=== PATIENT | male | born 1935 | race Asian ===

== ENCOUNTER 2020-11-20 08:40 | Outpatient (CLI) | payer OTHER ==
[2020-11-20] MEDS ORDERED: BARIUM SULFATE 135 ML SUSP.RECON (E-Z-HD) PO ONE (09:02)
== END 2020-11-20 20:32 | disposition home or self-care (01) ==
LOC: SRD 08:40
PROVIDERS: ATTEND Internal Medicine
DX: R13.10 Dysphagia, unspecified (principal)
CPT/HCPCS: 74220-TC

== ENCOUNTER 2021-10-30 09:42 | Outpatient (CLI) | payer OTHER | END 2021-10-30 20:40 | disposition home or self-care (01) | LOC: SMA 09:42 → EDSEX 09:42 → SMA 20:40 | PROVIDERS: ATTEND Internal Medicine | DX: Z12.31 Encounter for screening mammogram for malignant neoplasm of breast (principal); N64.89 Other specified disorders of breast | CPT/HCPCS: 77067 ==

== ENCOUNTER 2021-12-09 08:11 | Outpatient (CLI) | payer OTHER | END 2021-12-09 12:09 | disposition home or self-care (01) | LOC: SUS 08:11 | PROVIDERS: ATTEND Internal Medicine | DX: N18.9 Chronic kidney disease, unspecified (principal); N28.1 Cyst of kidney, acquired; N26.1 Atrophy of kidney (terminal) | CPT/HCPCS: 76700-TC ==

== ENCOUNTER 2022-07-04 12:06 | Outpatient (CLI) | payer OTHER | END 2022-07-04 19:30 | disposition home or self-care (01) | LOC: SLB 12:06 | PROVIDERS: ATTEND Internal Medicine | DX: S62.102A Fracture of unspecified carpal bone, left wrist, initial encounter for closed fracture (principal); M18.9 Osteoarthritis of first carpometacarpal joint, unspecified; X58.XXXA Exposure to other specified factors, initial encounter; Y93.89 Activity, other specified; Y92.89 Other specified places as the place of occurrence of the external cause; Y99.8 Other external cause status ==

== ENCOUNTER 2022-07-23 09:13 | Outpatient (CLI) | payer OTHER | END 2022-07-23 17:50 | disposition home or self-care (01) | LOC: SUS 09:13 | PROVIDERS: ATTEND Internal Medicine | DX: I08.0 Rheumatic disorders of both mitral and aortic valves (principal); I67.82 Cerebral ischemia; G31.9 Degenerative disease of nervous system, unspecified; I65.22 Occlusion and stenosis of left carotid artery | CPT/HCPCS: 70551; 93306; 93880 ==

== ENCOUNTER 2023-08-03 10:48 | Outpatient (CLI) | payer OTHER | END 2023-08-03 19:32 | disposition home or self-care (01) | LOC: SUS 10:48 | PROVIDERS: ATTEND Internal Medicine | DX: I65.29 Occlusion and stenosis of unspecified carotid artery (principal) | CPT/HCPCS: 93880 ==